=== PATIENT | male | born 1950 | race Caucasian/White ===

== ENCOUNTER 2025-06-01 10:30 | Emergency (ER) | payer OTHER, SELFPAY ==
[2025-06-01] VITALS (11 sets, daily range): BP systolic 142–196; BP diastolic 86–114; PULSE 71–88; RESP 16; TEMP 36.7–36.8; O2SAT 96–99; BMI 23.1
--- NOTE | 2025-06-01 11:00 | XR_ITS ---
FINAL REPORT CLINICAL HISTORY: pain FINDINGS: AP, lateral and oblique views of the left knee were obtained. There is no prior exam for comparison. There is no acute osseous abnormality of the left knee. Degenerative joint disease is mild with chondrocalcinosis. There is a small joint effusion. The soft tissues are normal. IMPRESSION: Degenerative changes and small joint effusion. No acute osseous abnormality. Reviewed, Interpreted and Dictated by Berta Glynn MD Transcribed by Poly Mackenzie Authenticated and [facility]
--- NOTE | 2025-06-01 11:22 | HMH.EDGENADL ---
Discharge Plan Disposition Patient Disposition: Home, Self-Care Prescriptions Prescriptions: New ibuprofen 800 mg tablet 800 mg PO Q8H PRN (Reason: pain) Qty: 15 0RF Referrals Follow up/Referrals: Karen Damian APRN [Primary Care Provider, Medical] - See instructions Activity Restrictions/Add. Instructions Additional Instructions/Restrictions: At this time it was felt you are safe to be discharged home. If new or worsening symptoms please do not hesitate to return the emergency department. Please continue to follow-up with your Ortho doctor as discussed and take your ibuprofen as prescribed Clinical Impressions Clinical Impression: Osteoarthritis Print Language Print Language: Maori Discharge ED Provider: Juan Crane General Adult HPI General Chief complaint: Extremity Injury, Lower Stated complaint: L knee pain/cant put weight on it Time Seen by Provider: 06/01/25 11:00 Mode of Arrival: Wheelchair Source of Information: Patient Description of Symptoms (Recalled from ER Triage Doc. by RN): Patient states he has been having left knee pain for a while but worse this morning when he woke up. Patient states he had X-days done on Thursday05/29/25 at the [facility] but is unsure what they said. States he is scheduled to have injections done on 07/06/25. Has not taken any medication for the pain. History of Present Illness HPI narrative: Patient is a 75-year-old male with past medical history of chronic knee pain and hip pain who presents emergency department for new knee pain on the left. Onset was subacute, 3 weeks ago patient did more walking than normal and had some left knee pain which waxed and waned however at 4 AM the pain woke him up out of his sleep causing him to become concerned and present here for continued evaluation. No direct trauma. There is associated swelling of the knee. No other acute complaints at this time. Please note that above description of symptoms, in this electronic medical record under categorization of recalled from ER triage doctor by RN are reflective of an initial nursing assessment, however, is not reflective of my full history and physical exam that was personally taken and clarified. Consequentially, this preceding description of symptoms, which may include the patient's categorized chief complaint in the EMR, do not reflect my personal clinical impression, and the ultimate description of history of present illness and patient stated complaints should be deferred to this section of the note. Unless stated otherwise or congruent with this section of the note, additional signs, symptoms, or incongruence should be interpreted as inaccurate with my clinical impression. Related Data Previous Rx's ?Medication ?Instructions ?Recorded ibuprofen 800 mg tablet 800 mg PO Q8H PRN pain #15 tabs 06/01/25 Allergies Allergy/AdvReac Type Severity Reaction Status Date / Time No Known Allergies [facility]ergy Verified 06/01/25 10:48 [facility] Disclaimer: The information contained in this section may have been updated after the patient was seen, as this information can be updated by other users. Social History Smoking Status: Never smoker alcohol intake: never current occupational status: other Travel in the last 8 weeks?: None ROS Obtained: Yes Systems reviewed as appropriate & no additional complaints except as documented Physical Exam General General appearance: alert Comment: Appearing uncomfortable in bed Head Head exam: atraumatic and normocephalic Eye Eye exam: Present PERRL and EOMI ENT ENT exam: Present mucous membranes moist Neck Neck exam: Present normal inspection Chest Chest inspection: Present normal inspection and symmetric chest wall rise Respiratory Respiratory exam: Present normal lung sounds bilaterally; Absent respiratory distress Cardiovascular Cardiovascular exam: Present regular rate and normal rhythm Abdominal Exam Abdominal exam: Present soft; Absent tenderness Extremities Exam Extremities exam: Present other (Swollen left knee that is warm, no erythema. Extensor mechanism intact. Significant pain with active and passive range of motion of the knee. Dorsal pedal pulse palpable on the left.) Neurological Exam Neurological exam: Present alert Psychiatric Psychiatric exam: Present normal affect Skin Skin exam: Present warm and dry Medical Decision Making Medical Records Screening: Per USPSTF and CDC recommendations, given the prevalence of disease in our region, it is our hospital?s policy to screen for HIV and viral Hepatitis for all patients aged 18 and over and those with ongoing risk factors. Lopez Inquiry Pt receiving controlled substance: No Vital Signs: 06/01/25 10:44 06/01/25 11:00 06/01/25 11:15 Temperature 98.2 F Temperature Source Oral Pulse Rate 81 78 Pulse Rate [Right Brachial] 88 Respiratory Rate 16 Blood Pressure 176/104 H 176/104 H Blood Pressure [Right Arm] 149/100 H Blood Pressure Mean Blood Pressure Mean [Right Arm] 116 Blood Pressure Source [Right Arm] Automatic Cuff Blood Pressure Position [Right Arm] Sitting 02 Sat by Pulse Oximetry 99 97 98 Oxygen Delivery Method Room Air 06/01/25 12:00 06/01/25 12:01 06/01/25 12:30 Temperature Temperature Source Pulse Rate 81 71 84 Pulse Rate [Right Brachial] Respiratory Rate Blood Pressure 185/87 H 185/87 H 142/114 H Blood Pressure [Right Arm] Blood Pressure Mean 119 120 Blood Pressure Mean [Right Arm] Blood Pressure Source [Right Arm] Blood Pressure Position [Right Arm] 02 Sat by Pulse Oximetry 97 98 96 Oxygen Delivery Method 06/01/25 13:01 06/01/25 13:30 06/01/25 14:01 Temperature Temperature Source Pulse Rate 74 74 72 Pulse Rate [Right Brachial] Respiratory Rate Blood Pressure 160/94 H 170/86 H 196/108 H Blood Pressure [Right Arm] Blood Pressure Mean 116 Blood Pressure Mean [Right Arm] Blood Pressure Source [Right Arm] Blood Pressure Position [Right Arm] 02 Sat by Pulse Oximetry 97 97 96 Oxygen Delivery Method 06/01/25 14:31 Temperature Temperature Source Pulse Rate 83 Pulse Rate [Right Brachial] Respiratory Rate Blood Pressure 180/87 H Blood Pressure [Right Arm] Blood Pressure Mean 139 Blood Pressure Mean [Right Arm] Blood Pressure Source [Right Arm] Blood Pressure Position [Right Arm] 02 Sat by Pulse Oximetry 97 Oxygen Delivery Method Lab Data Lab Results 06/01/25 11:30: WBC 9.6, RBC 4.25 L, Hgb 10.6 L, Hct 35.8 L, MCV 84.2, MCH 24.9 L, MCHC 29.6 L, RDW 19.7 H, Plt Count 339, MPV 8.7, Neut % (Auto) 80.5 H, Lymph % (Auto) 6.4 L, Allen % (Auto) 11.3 H, Eos % (Auto) 1.2, Baso % (Auto) 0.4, Neut # (Auto) 7.7, Lymph # (Auto) 0.6 L, Allen # (Auto) 1.1 H, Eos # (Auto) 0.1, Baso # (Auto) 0.0, Sodium 139, Potassium 4.9, Chloride 103, Carbon Dioxide 30, Anion Gap 10.9, BUN 12, Creatinine 0.70, Estimated Creat Clear 71, Estimated GFR 110, Est GFR ( Amer) 133, Glucose 111 H, Calcium 9.7, Total Bilirubin 0.4, AST 38, ALT 26, Alkaline Phosphatase 87, C-Reactive Protein 3.7, Total Protein 7.2, Albumin 4.0, Globulin 3.2, Albumin/Globulin Ratio 1.3 06/01/25 12:25: Fluid Source Synovial, Fluid Volume TNP, Fluid Appearance Clear, Fluid RBC (Auto) 3000, Fld Tot Nucleated Cell 576, Fld Polynuclear WBCs % 97, Fld Mononuclear WBCs % 3, Synov Monosodium Urate Absent, Synov Ca Pyrophos Dihyd Absent 06/01/25 11:30 06/01/25 11:30 Orders (Tests/Meds): ED MEDICATIONS Discontinued Medications Generic Name Dose Route Start Last Admin Trade Name Luisitoq PRN Reason Stop Dose Admin Acetaminophen 1,000 mg 06/01/25 11:22 06/01/25 11:38 Acetaminophen 500mg Tab PO 06/01/25 11:23 1,000 mg ONCE ONE Administration Ketorolac Tromethamine 30 mg 06/01/25 13:44 06/01/25 14:07 Ketorolac 30mg/Ml Vial IV 06/01/25 13:45 30 mg ONCE ONE Administration Oxycodone HCl 5 mg 06/01/25 11:22 06/01/25 11:38 Oxycodone 5mg Immediate Release Tablet PO 06/01/25 11:23 5 mg ONCE ONE Administration ORDERS Category Date Time Status Knee XR left 3 views [XR knee LT 3V] Stat Exams 06/01/25 11:00 Completed Body Fluid: Cell Count w/ Diff Stat Lab 06/01/25 12:25 Completed CBC w/Auto Diff [Complete Blood Count Auto Diff] Stat Lab 06/01/25 11:30 Completed CMP [Comprehensive Metabolic Panel] Stat Lab 06/01/25 11:30 Completed CRP [C-Reactive Protein] Stat Lab 06/01/25 11:30 Completed Synovial Fluid Crystals Stat Lab 06/01/25 12:25 Completed Body Fluid Cult & Gram Stain Stat Micro 06/01/25 12:25 Received Medical Decision Narrative: In summary patient is a 75-year-old male with past medical history described above who presents to the emergency department for evaluation of atraumatic knee pain although he was walking. Patient is hemodynamically stable and nontoxic-appearing upon arrival, afebrile. Differential diagnosis includes osteoarthritis, gout, septic arthritis, among others. Given the subacute nature of this and the fact that it is not red makes septic arthritis less likely. Initial workup will be conducted with hematologic labs plain film arthrocentesis. Initial inventions include multimodal pain control. Initial workup reviewed by me no significant leukocytosis no transfusable anemia, no SAMIR or critical electrolyte abnormality. Patient underwent arthrocentesis and was successful. Synovial fluid total nucleated cell count 576 no concern for inflammatory or infectious arthritis given this. Uric acid and calcium phosphate crystals absent. Given this it is most likely this patient has severe knee pain from his osteoarthritis. He has a walker at home and is pending injections on an outpatient basis and is appropriate for discharge at this time. Procedure: Procedure performed was arthrocentesis. Procedure performed by Juan Crane. Using ultrasound guidance and effusion was located at 10:00 on the patient's left knee. Area was cleaned with ChloraPrep and numbed with 1% lidocaine with epinephrine approximately 5 cc. Using an 18-gauge needle was advanced into the area of effusion and approximately 5 cc of straw-colored fluid were removed and placed in a sterile specimen cup. Patient tolerated the procedure well there were no immediate complications. Critical Care Critical Care Time Critical Care Time: No
[2025-06-01] MEDS: ACETAMINOPHEN 500MG TAB 1000 MG PO (11:38)
[2025-06-01] MEDS: OXYCODONE 5MG IMMEDIATE RELEASE TABLET 5 MG PO (11:38)
[2025-06-01 11:40] LABS: Hematocrit 35.8 % (42.0-52.0); Hemoglobin 10.6 g/dL (14.1-18.0); Immature Granulocytes % 0.2 %; Mean Corpuscular HGB Conc 29.6 g/dL (31.8-35.4); Mean Corpuscular Hemoglobin 24.9 pg (27.0-31.2); Mean Corpuscular Volume 84.2 fl (80-94); Nucleated Red Blood Cells % 0 %; Platelet Count 339 K/mm3 (142-424); Red Blood Count 4.25 M/mm3 (4.60-6.20); Red Cell Distribution Width-SD 60.7 fL; White Blood Count 9.6 K/mm3 (4.8-10.8)
[2025-06-01 11:52] LABS: Albumin Level 4.0 g/dl (3.5-5.0); Chloride 103 mmol/L (98-107); Potassium 4.9 mmoL/L (3.5-5.1); Sodium 139 mmol/L (136-145)
[2025-06-01 11:55] LABS: Alanine Aminotransferase 26 U/L (12-78); Albumin/Globulin Ratio 1.3 (1.1-1.8); Alkaline Phosphatase 87 U/L (38-126); Anion Gap 10.9 mEq/L (5-15); Aspartate Amino Transferase 38 U/L (17-59); Bilirubin,Total 0.4 mg/dl (0.2-1.3); Blood Urea Nitrogen 12 mg/dl (9-20); Calcium 9.7 mg/dl (8.4-10.2); Carbon Dioxide 30 mmol/L (22.0-30.0); Creatinine Clearance Estimated 71 mL/min (50-200); Creatinine,Serum 0.70 mg/dl (0.66-1.25); Estimated Glomerular Filt Rate 110 ml/min (>60); GFR (African American) 133 ML/MIN (>60); Globulin 3.2 g/dL (1.3-3.2); Glucose 111 mg/dl (74-100); Total Protein,Serum 7.2 g/dl (6.3-8.2)
[2025-06-01 12:26] LABS: C-Reactive Protein 3.7 mg/L (0-4)
[2025-06-01 12:45] LABS: Ca pyrophosphate dihyd Absent
[2025-06-01] MEDS: KETOROLAC 30MG/ML VIAL 30 MG IV (14:07)
[2025-06-01 14:18] LABS: Appearance,Body Fld. CLEAR; Source, Body Fld. Synovial
[2025-06-01 14:19] LABS: RBC,Body Fluid 3000 cells/uL (< 10 X 10^3); TNC,Body Fluid 576 cells/uL (< 1000)
[2025-06-01 14:53] LABS: Mononuclear WBCs,Body Fluid 3 %; Polynuclear WBC,Body Fluid 97 %
== END 2025-06-01 15:17 | disposition home or self-care (01) ==
PROVIDERS: Emergency Provider Emergency Medicine; PCP Nurse Practitioner Family
DX: M25.562 Pain in left knee (principal); R22.42 Localized swelling, mass and lump, left lower limb; M17.9 Osteoarthritis of knee, unspecified
CPT/HCPCS: 20610; 73562; 80053; 85025; 86140; 87070; 87205; 89051; 89060; 96374; 99284; J1885; J2004